=== PATIENT | female | born 1995 | race American Indian/Alaskan Native ===

== ENCOUNTER 2018-06-08 21:29 | Emergency (ER) | payer OTHER ==
--- NOTE | 2018-06-09 00:49 | Emergency Department Report ---
ED Headache HPI - General Chief Complaint: Headache Stated Complaint: HEAD PAIN X1 MONTH Time Seen by Provider: 06/09/18 00:38 - History of Present Illness Initial Comments: Patient is 22 years old female with no significant past medical history. Patient presented to the ER complaining of one month history of headache, constant. Patient stated that she's been taking [id number] medicine that is not helping. She never had any history of headache before. Patient denied any fever, neck pain or recent injury. Patient denied any weakness, numbness or tingling sensation. No bowel or bladder incontinence. Timing/Duration: other (month) Quality: moderate, constant Head Injury Location: global Recent Head Trauma: no recent headache/trauma Associated Symptoms: denies symptoms Allergies/Adverse Reactions: Allergies No Known Allergies Allergy (Unverified 06/08/18 22:18) ED Review of Systems ROS: Stated complaint: HEAD PAIN X1 MONTH Other details as noted in HPI Comment: All other systems reviewed and negative Constitutional: denies: chills, fever Cardiovascular: denies: chest pain, palpitations, dyspnea on exertion Gastrointestinal: denies: abdominal pain, nausea, vomiting, diarrhea, constipation, hematemesis, hematochezia Neurological: denies: headache, weakness, numbness, paresthesias, confusion, abnormal gait ED Past Medical Hx - Past Medical History Previous Medical History?: No - Surgical History Past Surgical History?: No - Social History Smoking Status: Never Smoker Substance Use Type: Alcohol ED Physical Exam - General Limitations: No Limitations General appearance: alert, in no apparent distress - Head Head exam: Present: atraumatic, normocephalic, normal inspection - Eye Eye exam: Present: normal appearance, PERRL - ENT ENT exam: Present: normal exam, normal orophraynx, mucous membranes moist - Neck Neck exam: Present: normal inspection, full ROM. Absent: tenderness, meningismus, lymphadenopathy, thyromegaly - Respiratory Respiratory exam: Present: normal lung sounds bilaterally. Absent: respiratory distress, wheezes, rales, rhonchi, stridor, chest wall tenderness, accessory muscle use, decreased breath sounds, prolonged expiratory - Cardiovascular Cardiovascular Exam: Present: regular rate, normal rhythm, normal heart sounds - GI/Abdominal GI/Abdominal exam: Present: soft, normal bowel sounds. Absent: distended, tenderness, guarding, rebound, rigid, organomegaly, mass, bruit, pulsatile mass , hernia - Extremities Exam Extremities exam: Present: normal inspection, full ROM, normal capillary refill - Back Exam Back exam: Present: normal inspection, full ROM. Absent: CVA tenderness (R), CVA tenderness (L), muscle spasm, paraspinal tenderness, vertebral tenderness, rash noted - Neurological Exam Neurological exam: Present: alert, oriented X3, CN II-XII intact, normal gait, reflexes normal - Skin Skin exam: Present: warm, intact, normal color ED Medical Decision Making - Radiology Data Radiology results: report reviewed Referring Physician: ALIDA METZ Patient Name: TWILA DOE Date of : 1995 Sex: Female Report Date: 2018-06-09 Report Status: Finalized Findings [facility], [place] [address] [place] [address] Cat Scan Report Signed Patient: TWILA DOE MR#: [id number] : 1995 Acct:[id number] Age/Sex: 22 / F ADM Date: 06/08/18 Loc: ED Attending Dr: Ordering Physician: ALIDA METZ Date of Service: 06/09/18 Procedure(s): CT head/brain wo con Accession Number(s): [id number] cc: ALIDA METZ FINAL REPORT PROCEDURE: CT HEAD/BRAIN WO CON TECHNIQUE: Computerized tomography of the head was performed without contrast material. HISTORY: headache COMPARISON: No prior studies are available for comparison. FINDINGS: Skull and scalp: Normal. Paranasal sinuses: Normal. Ventricles and subarachnoid spaces: Normal. Cerebrum: No evidence of hemorrhage, acute infarction or mass . Cerebellum and brainstem: No evidence of hemorrhage, acute infarction or mass. Vasculature: Normal. Comments: None. IMPRESSION: Normal Examination Transcribed By: CO Dictated By: ANGELICA GRAMAJO MD Electronically Authenticated By: ANGELICA GRAMAJO MD Signed Date/Time: 06/09/18333 DD/ 3 TD/TT: 06/09/18333 Critical care attestation.: If time is entered above; I have spent that time in minutes in the direct care of this critically ill patient, excluding procedure time. ED Disposition Clinical Impression: Headache, UTI (urinary tract infection) Disposition: DC-01 TO HOME OR SELFCARE Is pt being admited?: No Condition: Stable Instructions: Acute Headache (ED), Urinary Tract Infection in Women (ED) Referrals: PRIMARY CARE,MD [Primary Care Provider] - 3-5 Days Forms: Work/School Release Form(ED)
[2018-06-09 01:53] LABS: HCG Qualitative,Urine Negative (Negative)
[2018-06-09 02:07] LABS: Bacteria,Urine 1+ /HPF (Negative); Bilirubin,Urine NEG (Negative); Blood,Urine NEG (Negative); Color,Urine Yellow (Yellow); Mucus,Urine 3+ /HPF; Protein,Urine <15 mg/dL mg/dL (Negative); Urobilinogen,Urine < 2.0 mg/dL (<2.0)
--- NOTE | 2018-06-09 03:41 | Cat Scan Report ---
FINAL REPORT PROCEDURE: CT HEAD/BRAIN WO CON TECHNIQUE: Computerized tomography of the head was performed without contrast material. HISTORY: headache COMPARISON: No prior studies are available for comparison. FINDINGS: Skull and scalp: Normal. Paranasal sinuses: Normal. Ventricles and subarachnoid spaces: Normal. Cerebrum: No evidence of hemorrhage, acute infarction or mass . Cerebellum and brainstem: No evidence of hemorrhage, acute infarction or mass. Vasculature: Normal. Comments: None. IMPRESSION: Normal Examination
== END 2018-06-09 04:18 | disposition home or self-care (01) ==
LOC: ED 21:29
DX: N39.0 Urinary tract infection, site not specified (principal); R51 Headache
CPT/HCPCS: 70450; 81001; 81025; 99284

== ENCOUNTER 2019-03-21 15:12 | Emergency (ER) | payer OTHER ==
--- NOTE | 2019-03-21 15:24 | Emergency Department Report ---
Blank Doc - Documentation Documentation: This is a 23-year-old female that presents with vaginal bleeding and pelvic pa in. Stated is about 4 weeks . This initial assessment/diagnostic orders/clinical plan/treatment(s) is/are subject to change based on patient's health status, clinical progression and re-assessment by fellow clinical providers in the ED. Further treatment and workup at subsequent clinical providers discretion. Patient/guardians urged not to elope from the ED as their condition may be serious if not clinically assessed and managed. Initial orders include: 1- Patient sent to [facility] for further evaluation and treatment 2- labs 3- UA 4- US OB
[2019-03-21 16:15] LABS: Basophils % (Auto) 0.3 % (0.0-1.8); Eosinophils # (Auto) 0.2 K/mm3 (0.0-0.4); Eosinophils % (Auto) 1.8 % (0.0-4.3); Hematocrit 39.9 % (30.3-42.9); Hemoglobin 13.5 gm/dl (10.1-14.3); Lymphocytes # (Auto) 2.3 K/mm3 (1.2-5.4); Lymphocytes % (Auto) 24.9 % (13.4-35.0); Mean Corpuscular HGB Conc 34 % (30-34); Mean Corpuscular Volume 93 fl (79-97); Monocytes # (Auto) 0.8 K/mm3 (0.0-0.8); Monocytes % (Auto) 8.1 % (0.0-7.3); Platelet Count 269 K/mm3 (140-440); Red Blood Count 4.29 M/mm3 (3.65-5.03); Red Cell Distribution Width 13.2 % (13.2-15.2)
--- NOTE | 2019-03-21 18:14 | Emergency Department Report ---
ED Female HPI - General Chief complaint: Vaginal Bleeding Stated complaint: VAGINAL BLEEDING/PAIN Time Seen by Provider: 03/21/19 15:22 Source: patient Mode of arrival: Ambulatory Limitations: No Limitations - History of Present Illness Initial comments: Pt is a 23 yo female who presents to the ED with c/o surapubic abd jones that began around 5 AM this morning. She has no pain currently. The patient states that she began having vaginal spotting yesterday but had heavier bleeding today. She states that she has changed her pad approximately 4-5 times today. She denies any fever, N/V. She states she took one at home test last night which she states was positive. LNMP middle of january per pt. she states that she has a hx of irregular cycles and previously was on control in her teens. she states that her cycles have been increasingly longer over the last few months. 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 - Related Data Previous Rx's Medication Instructions Recorded Last Taken Type Ketorolac [Toradol] 10 mg PO Q6H PRN #14 tablet 06/09/18 Unknown Rx Sulfamethoxazole/Trimethoprim 1 each PO BID #6 tablet 06/09/18 Unknown Rx [Bactrim DS TAB] Nitrofurantoin Montgomery/M-Cryst 100 mg PO BID 5 Days #10 capsule 03/21/19 Unknown Rx [Macrobid CAP] Phenazopyridine [Pyridium] 200 mg PO BID #10 tab 03/21/19 Unknown Rx Allergies Allergy/AdvReac Type Severity Reaction Status Date / Time No Known Allergies Allergy Verified 03/21/19 15:15 ED Review of Systems ROS: Stated complaint: VAGINAL BLEEDING/PAIN Other details as noted in HPI Comment: All other systems reviewed and negative ED Past Medical Hx - Past Medical History Previous Medical History?: No - Surgical History Past Surgical History?: No - Social History Smoking Status: Never Smoker Substance Use Type: None - Medications Home Medications: Home Medications Medication Instructions Recorded Confirmed Last Taken Type Ketorolac [Toradol] 10 mg PO Q6H PRN #14 tablet 06/09/18 Unknown Rx Sulfamethoxazole/Trimethoprim 1 each PO BID #6 tablet 06/09/18 Unknown Rx [Bactrim DS TAB] Nitrofurantoin Montgomery/M-Cryst 100 mg PO BID 5 Days #10 capsule 03/21/19 Unknown Rx [Macrobid CAP] Phenazopyridine [Pyridium] 200 mg PO BID #10 tab 03/21/19 Unknown Rx ED Physical Exam - General Limitations: No Limitations General appearance: alert, in no apparent distress - Head Head exam: Present: atraumatic, normocephalic - Eye Eye exam: Present: normal appearance - ENT ENT exam: Present: mucous membranes moist - Respiratory Respiratory exam: Present: normal lung sounds bilaterally. Absent: respiratory distress, wheezes, rales, rhonchi, stridor, chest wall tenderness, accessory muscle use, decreased breath sounds, prolonged expiratory - Cardiovascular Cardiovascular Exam: Present: regular rate, normal rhythm, normal heart sounds. Absent: systolic murmur, diastolic murmur, rubs, gallop - GI/Abdominal GI/Abdominal exam: Present: soft, normal bowel sounds. Absent: distended, tenderness, guarding, rebound, rigid - Back Exam Back exam: Absent: CVA tenderness (R), CVA tenderness (L) - Neurological Exam Neurological exam: Present: alert, oriented X3 - Psychiatric Psychiatric exam: Present: normal affect, normal mood - Skin Skin exam: Present: warm, dry, intact ED Course Vital Signs 03/21/19 03/21/19 03/21/19 15:25 16:51 19:53 Temperature 97.9 F 98.7 F Pulse Rate 71 61 Respiratory 16 16 15 Rate Blood Pressure 111/82 Blood Pressure 115/66 [Left] O2 Sat by Pulse 100 96 Oximetry ED Medical Decision Making - Lab Data Result diagrams: 03/21/19 15:30 Lab Results 03/21/19 03/21/19 03/21/19 Range/Units 15:30 15:30 15:30 WBC 9.3 (4.5-11.0) K/mm3 RBC 4.29 (3.65-5.03) M/mm3 Hgb 13.5 (10.1-14.3) gm/dl Hct 39.9 (30.3-42.9) % MCV 93 (79-97) fl MCH 32 (28-32) pg MCHC 34 (30-34) % RDW 13.2 (13.2-15.2) % Plt Count 269 (140-440) K/mm3 Lymph % (Auto) 24.9 (13.4-35.0) % Montgomery % (Auto) 8.1 H (0.0-7.3) % Eos % (Auto) 1.8 (0.0-4.3) % Baso % (Auto) 0.3 (0.0-1.8) % Lymph # 2.3 (1.2-5.4) K/mm3 Montgomery # 0.8 (0.0-0.8) K/mm3 Eos # 0.2 (0.0-0.4) K/mm3 Baso # 0.0 (0.0-0.1) K/mm3 Seg Neutrophils % 64.9 (40.0-70.0) % Seg Neutrophils # 6.0 (1.8-7.7) K/mm3 HCG, Qual Negative (Negative) HCG, Quant < 2 (0-4) mIU/mL Urine Color (Yellow) Urine Turbidity (Clear) Urine pH (5.0-7.0) Ur Specific Conway (1.003-1.030) Urine Protein (Negative) mg/dL Urine Glucose (UA) (Negative) mg/dL Urine Ketones (Negative) mg/dL Urine Blood (Negative) Urine Nitrite (Negative) Urine Bilirubin (Negative) Urine Urobilinogen (<2.0) mg/dL Ur Leukocyte Esterase (Negative) Urine WBC (Auto) (0.0-6.0) /HPF Urine RBC (Auto) (0.0-6.0) /HPF U Epithel Cells (Auto) (0-13.0) /HPF Urine WBC Clumps /HPF Urine Mucus /HPF Urine Yeast (Budding) /HPF Urine Sperm (DRUM HANDLER) /HPF Blood Type Antibody Screen 03/21/19 03/21/19 Range/Units 15:54 18:05 WBC (4.5-11.0) K/mm3 RBC (3.65-5.03) M/mm3 Hgb (10.1-14.3) gm/dl Hct (30.3-42.9) % MCV (79-97) fl MCH (28-32) pg MCHC (30-34) % RDW (13.2-15.2) % Plt Count (140-440) K/mm3 Lymph % (Auto) (13.4-35.0) % Montgomery % (Auto) (0.0-7.3) % Eos % (Auto) (0.0-4.3) % Baso % (Auto) (0.0-1.8) % Lymph # (1.2-5.4) K/mm3 Montgomery # (0.0-0.8) K/mm3 Eos # (0.0-0.4) K/mm3 Baso # (0.0-0.1) K/mm3 Seg Neutrophils % (40.0-70.0) % Seg Neutrophils # (1.8-7.7) K/mm3 HCG, Qual (Negative) HCG, Quant (0-4) mIU/mL Urine Color Red (Yellow) Urine Turbidity Cloudy (Clear) Urine pH 6.0 (5.0-7.0) Ur Specific Conway 1.026 (1.003-1.030) Urine Protein 100 mg/dl (Negative) mg/dL Urine Glucose (UA) 50 (Negative) mg/dL Urine Ketones Tr (Negative) mg/dL Urine Blood Lg (Negative) Urine Nitrite Pos (Negative) Urine Bilirubin Neg (Negative) Urine Urobilinogen < 2.0 (<2.0) mg/dL Ur Leukocyte Esterase Neg (Negative) Urine WBC (Auto) > 182.0 H (0.0-6.0) /HPF Urine RBC (Auto) > 182.0 (0.0-6.0) /HPF U Epithel Cells (Auto) 6.0 (0-13.0) /HPF Urine WBC Clumps 3+ /HPF Urine Mucus 3+ /HPF Urine Yeast (Budding) 1+ /HPF Urine Sperm 2+ (DRUM HANDLER) /HPF Blood Type B NEGATIVE Antibody Screen Negative Vital Signs 03/21/19 03/21/19 03/21/19 15:25 16:51 19:53 Temperature 97.9 F 98.7 F Pulse Rate 71 61 Respiratory 16 16 15 Rate Blood Pressure 111/82 Blood Pressure 115/66 [Left] O2 Sat by Pulse 100 96 Oximetry - Medical Decision Making Pt is a 23 yo female who presents to the ED with c/o surapubic abd jones that began around 5 AM this morning. She has no pain currently. The patient states that she began having vaginal spotting yesterday but had heavier bleeding today. She states that she has changed her pad approximately 4-5 times today. She denies any fever, N/V. She states she took one at home test last night which she states was positive. LNMP middle of january per pt. she states that she has a hx of irregular cycles and previously was on control in her teens. she states that her cycles have been increasingly longer over the last few months. 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 vitals are normal. no abd tenderness on exam. labs WNL. hcg quant is <2. UA with many WBCs and nitrite positive. pt given abx prescription. advised to take medications as prescribed. continue to drink plenty of water. discussed with pt to keep her appt with her [employer]TENA[employer] TECHNICIAN for 03/22 and receive a full examination at that time and discuss with her [employer]TENA[employer] TECHNICIAN about the issues she is having. discussed to follow up with PCP in the next 2-3 days. return to the ED for any new or worsening symptoms. Critical care attestation.: If time is entered above; I have spent that time in minutes in the direct care of this critically ill patient, excluding procedure time. ED Disposition Clinical Impression: Dysmenorrhea Menorrhagia Qualifiers: Menorrahagia type: with regular cycle Qualified Code(s): N92.0 - Excessive and frequent menstruation with regular cycle UTI (urinary tract infection) Qualifiers: Urinary tract infection type: acute cystitis Hematuria presence: with hematuria Qualified Code(s): N30.01 - Acute cystitis with hematuria Disposition: TO HOME OR SELFCARE Is pt being admited?: No Does the pt Need Aspirin: No Condition: Stable Instructions: Dysmenorrhea (ED), Urinary Tract Infection in Women (ED), Menorrhagia (ED) Additional Instructions: Please follow up with an MAINTENAN[employer] TECHNICIAN as soon as possible. Please take all medication as prescribed. continue drinking plenty of fluids. follow up with primary care doctor in the next 2-3 days. Return to the emergency room for any new or worsening symptoms. May use tylenol or motrin for any discomfort. Prescriptions: Nitrofurantoin Montgomery/M-Cryst [Macrobid CAP] 100 mg PO BID 5 Days #10 capsule Phenazopyridine [Pyridium] 200 mg PO BID #10 tab Referrals: MAYO FULTON MD [Primary Care Provider] - 2-3 Days [facility] [Provider Group] - 2-3 Days Time of Disposition: 19:45 Print Language: MOHAWK
[2019-03-21 19:39] LABS: Bilirubin,Urine NEG (Negative); Blood,Urine LG (Negative); Color,Urine Red (Yellow); Mucus,Urine 3+ /HPF; Sperm,Urine 2+ /HPF (NP); Urobilinogen,Urine < 2.0 mg/dL (<2.0)
[2019-03-21 19:40] LABS: RBC,Urine > 182.0 /HPF (0.0-6.0); WBC,Urine > 182.0 /HPF (0.0-6.0)
[2019-03-21 19:54] VITALS: BP 115/66
== END 2019-03-21 19:54 | disposition home or self-care (01) ==
LOC: ED 15:12
DX: N30.01 Acute cystitis with hematuria (principal); N92.0 Excessive and frequent menstruation with regular cycle; N94.6 Dysmenorrhea, unspecified
CPT/HCPCS: 36415; 81001; 84702; 84703; 85025; 86850; 86900; 86901; 99283

== ENCOUNTER 2019-12-25 17:22 | Outpatient (CLI) | payer MEDICAID ==
[2019-12-25 18:18] LABS: Bacteria,Urine 1+ /HPF (Negative); Bilirubin,Urine NEG (Negative); Blood,Urine NEG (Negative); Color,Urine Amber (Yellow); Mucus,Urine 3+ /HPF
[2019-12-25] MEDS ORDERED: LACTATED RINGERS 500 ML IV ONE (19:00)
[2019-12-25] MEDS ORDERED: TERBUTALINE 1 MG/1 ML INJ IVP ONE (20:00)
[2019-12-25 20:05] VITALS: BP 119/64
== END 2019-12-25 20:52 | disposition home or self-care (01) ==
LOC: TRG 17:22
PROVIDERS: ATTEND Obstetrics & Gynecology
DX: O26.893 Other specified pregnancy related conditions, third trimester (principal); M54.9 Dorsalgia, unspecified; O47.03 False labor before 37 completed weeks of gestation, third trimester; Z3A.36 36 weeks gestation of pregnancy
CPT/HCPCS: 81001; 87086; 96360; 96372; J3105; J7120